=== PATIENT | female | born 1970 | race Caucasian/White ===

== ENCOUNTER 2021-03-19 03:38 | Observation (INO) | payer BC ==
[~2021-03-19] VITALS: Ht 165.1 cm; Wt 107.5 kg
[2021-03-19 04:49] LABS: HEMOGLOBIN 13.6 gm/dl (12.3-15.3); RED BLOOD COUNT 4.8 M/UL (4.00-5.10)
[2021-03-19 05:07] LABS: BUN/CREATININE RATIO 12 (0-10)
[2021-03-19] MEDS ORDERED: AMLODIPINE BESYL5 MG PO (11:27)
[2021-03-19] MEDS ORDERED: PROPRANOLOL HCL80 MG PO (11:28)
[2021-03-19] MEDS ORDERED: AMITRIPTYLINE H25 MG PO (11:28)
[2021-03-19] MEDS ORDERED: HARD NAILS2500 MCG PO (11:29)
[2021-03-19] MEDS ORDERED: VITAMIN D350 MC3 PO (11:29)
[2021-03-19] MEDS ORDERED: MULTI FOR HER1 EACH PO (11:29)
[2021-03-19] MEDS ORDERED: ZYRTEC10 MG PO (11:30)
[2021-03-19] MEDS ORDERED: AZO URINARY TR1 EAC1 PO (11:30)
== END 2021-03-20 13:26 | disposition home or self-care (01) ==
LOC: ER1 03:38 → CDU 09:32 → MED SURG 4 09:32
PROVIDERS: Emergency Medicine; ADMIT Surgery
DX: K80.12 Calculus of gallbladder with acute and chronic cholecystitis without obstruction (principal); I10 Essential (primary) hypertension; E66.01 Morbid (severe) obesity due to excess calories; Z68.39 Body mass index [BMI] 39.0-39.9, adult; Z79.899 Other long term (current) drug therapy; Z20.822 Contact with and (suspected) exposure to COVID-19
CPT/HCPCS: 76705; 80053; 81001; 83690; 85025; 87040; 93005; 96374; 96375; 96376; 99285; G0378; J0690; J1100; J1885; J2001; J2250; J2270; J2405; J2543; J2704; J2710; J2765; J3010; J7030; J7120; Q9967; U0002